=== PATIENT | female | born 1980 | race Caucasian/White ===

== ENCOUNTER → 2024-07-20 | Outpatient (CLI) | payer BC, SELFPAY ==
[2024-07-20 17:12] LABS: Free T4 (Free Thyroxine) 0.89 ng/dL (0.89-1.76); Thyroid Stimulating Hormone 4.07 uIU/mL (0.55-4.78)
[2024-07-27 06:57] LABS: T3,Total* 83 ng/dL (76-181)
== END | disposition home or self-care (01) ==
LOC: COPL 16:16
PROVIDERS: PCP Nurse Practitioner Family; Referring Provider Nurse Practitioner Family; Visit Provider Nurse Practitioner Family
DX: E03.9 Hypothyroidism, unspecified (principal)
CPT/HCPCS: 36415; 84439; 84443; 84480

== ENCOUNTER → 2025-01-04 | Outpatient (CLI) | payer BC, SELFPAY ==
--- NOTE | 2025-01-04 15:54 | XR_ITS ---
Examination: Lumbar spine, 5 views Technique: Lumbar spine AP, lateral, coned lateral lower lumbar spine, bilateral obliques 5 views Exam date and time: January 04, 2025 1558 hours INDICATIONS: Patient fell off a horse 2 weeks ago with back pain FINDINGS: Mild osteopenia. Satisfactory alignment lumbar vertebral bodies. No lumbar fracture. Mild disc narrowing L5-S1 IMPRESSION: No lumbar fracture.
--- NOTE | 2025-01-04 15:54 | XR_ITS ---
Examination: Sacrum and coccyx 3 views TECHNIQUE: AP, inclined AP, lateral sacrum and coccyx 3 views Date and time: January 04, 2025 1619 hours INDICATIONS: Patient fell off a horse 2 weeks ago with injury to the sacrum, sacral pain. FINDINGS: Intrauterine device right pelvis Symmetrical sacral foramina Acute fractures first coccygeal segment without significant displacement IMPRESSION: Acute fractures first coccygeal segment without significant displacement
--- NOTE | 2025-01-04 15:54 | XR_ITS ---
Examination: Knee, left , 3 views Technique: Knee AP, lateral, oblique 3 views Date and time of exam: January 04, 2025 1558 hours INDICATIONS: Knee pain beginning 2 months ago. FINDINGS: Mild narrowing medial joint space No fracture or dislocation. No foreign body IMPRESSION: Mild narrowing medial joint space
== END | disposition home or self-care (01) ==
PROVIDERS: PCP Nurse Practitioner Family; Referring Provider Nurse Practitioner Family; Visit Provider Nurse Practitioner Family
DX: S32.2XXA Fracture of coccyx, initial encounter for closed fracture (principal); W19.XXXA Unspecified fall, initial encounter; M25.862 Other specified joint disorders, left knee
CPT/HCPCS: 72110; 72220; 73562